=== PATIENT | female | born 1955 | race Caucasian/White ===

== ENCOUNTER 2024-07-14 15:14 | Inpatient (IN) | payer MEDICARE, OTHER ==
[2024-07-14 16:16] LABS: #Basophils 0.04 10x3/uL (0.0-0.2); #Eosinophils 0.15 10x3/uL (0.0-0.5); #Monocytes 0.81 10x3/uL (0.0-1.1); #Neutrophils 4.53 10x3/uL (1.5-8.4); %Basophils 0.5 % (0.0-2.0); %Eosinophils 1.8 % (0.0-6.0); %Lymphocytes 32.1 % (18.0-47.0); %Monocytes 9.9 % (0.0-10.0); %Neutrophils 55.5 % (40.0-75.0); Hematocrit 36.8 % (34.9-44.5); Hemoglobin 12.5 g/dL (12.0-15.5); Mean Corpuscular Hemoglobin 33.7 pg (27.0-33.0); Mean Corpuscular Volume 99.2 fL (81.6-98.3); Mean Platelet Volume 9.8 fL (7.4-10.4); Platelet Count 272 10x3/uL (150-450); RBC Distribution Width 12.6 % (11.5-14.5); Red Blood Cell (RBC) Count 3.71 10x6/uL (3.90-5.03); White Blood Cell (WBC) Count 8.2 10x3/uL (3.5-10.5)
[2024-07-14 16:28] LABS: ALT (SGPT) 18 U/L (8-55); AST (SGOT) 23 U/L (5-34); Albumin 4.2 g/dL (3.4-4.8); Alkaline Phosphatase 61 U/L (40-110); Anion Gap 15 mmol/L (10-20); BUN (Urea Nitrogen) 9 mg/dL (9.8-20.1); Bilirubin, Total 0.6 mg/dL (0.2-1.2); Calc. Creatinine Clearance 0 mL/min (70-130); Calcium 9.2 mg/dL (7.8-10.44); Carbon Dioxide 24 mmol/L (23-31); Chloride 104 mmol/L (98-107); Estimated GFR 81; Globulin 3.1 g/dL (2.4-3.5); Glucose 102 mg/dL (80-115); Protein, Total 7.3 g/dL (5.8-8.1); Sodium 139 mmol/L (136-145)
[2024-07-14 16:34] LABS: Troponin I Less than 0.010 ng/mL (< 0.028)
[2024-07-14] MEDS ORDERED: Aspirin Chewable 81 MG TAB ONE (17:34)
[2024-07-14] MEDS ORDERED: hydrALAZINE 20 MG/ML VIAL SLOW IVP PRN (17:54)
[2024-07-14] MEDS ORDERED: Senokot S 8.6-50 MG TAB PO PRN (17:54)
[2024-07-14] MEDS ORDERED: Lorazepam 2 MG/ML VIAL SLOW IVP SCH (18:15)
[2024-07-14 20:53] VITALS: BMI 23.0
[2024-07-14] MEDS: Famotidine/PF 20 mg/2ml Vial SLOW IVP SCH (21:33)
[2024-07-14] MEDS: Atorvastatin Calcium 40 MG TAB PO SCH (21:33)
[2024-07-15 04:09] LABS: #Basophils 0.04 10x3/uL (0.0-0.2); #Eosinophils 0.22 10x3/uL (0.0-0.5); #Monocytes 0.96 10x3/uL (0.0-1.1); #Neutrophils 3.28 10x3/uL (1.5-8.4); %Basophils 0.5 % (0.0-2.0); %Eosinophils 2.8 % (0.0-6.0); %Lymphocytes 42.6 % (18.0-47.0); %Monocytes 12.2 % (0.0-10.0); %Neutrophils 41.5 % (40.0-75.0); Hematocrit 34.7 % (34.9-44.5); Hemoglobin 11.5 g/dL (12.0-15.5); Mean Corpuscular HGB CONC 33.1 g/dL (32.0-36.0); Mean Corpuscular Hemoglobin 32.7 pg (27.0-33.0); Mean Corpuscular Volume 98.6 fL (81.6-98.3); Mean Platelet Volume 9.9 fL (7.4-10.4); Platelet Count 223 10x3/uL (150-450); RBC Distribution Width 12.6 % (11.5-14.5); Red Blood Cell (RBC) Count 3.52 10x6/uL (3.90-5.03); White Blood Cell (WBC) Count 7.9 10x3/uL (3.5-10.5)
[2024-07-15 04:34] LABS: Anion Gap 13 mmol/L (10-20); BUN (Urea Nitrogen) 10 mg/dL (9.8-20.1); Calc. Creatinine Clearance 64 mL/min (70-130); Calcium 8.7 mg/dL (7.8-10.44); Carbon Dioxide 27 mmol/L (23-31); Cardiac Risk 1.6 (Less than 4.5); Chloride 104 mmol/L (98-107); Cholesterol 114 mg/dl (< 200 Desired); Estimated GFR 81; Glucose 92 mg/dL (80-115); HDL Cholesterol 73 mg/dL (>60 Neg Risk); LDL Cholesterol, Calculated 32 mg/dL; Potassium 3.4 mmol/L (3.5-5.1); Sodium 141 mmol/L (136-145); Triglycerides 43 mg/dL (Less than 150)
[2024-07-15] MEDS: Enoxaparin 40 MG (0.4 mL) SYRINGE SC SCH (08:08)
[2024-07-15] MEDS: Potassium Chloride 20 MEQ TAB PO SCH (08:09)
[2024-07-15] MEDS: Ezetimibe 10 MG TAB PO SCH (08:09)
[2024-07-15] MEDS: Aspirin 81 mg Enteric Coated Tablet PO SCH (08:09)
[2024-07-15] MEDS: Icosapent Ethyl 1 GM CAPSULE PO SCH (08:34)
[2024-07-15] MEDS: Acetaminophen 325 MG TAB PO PRN (23:11)
[2024-07-16] MEDS: FLU (Fluad Triv) TS24-25 (65UP)/MF59C/PF 45 MCG/0.5 ML Syringe IM ONE (08:34)
[2024-07-16] MEDS: Lorazepam 2 MG/ML VIAL SLOW IVP SCH (11:45)
[2024-07-16] MEDS ORDERED: Iopamidol 370 76% 100 ML VIAL ONE (13:15)
[2024-07-16 14:33] LABS: Hemoglobin A1c 5.3 % (4.0-6.0)
[2024-07-16] MEDS ORDERED: Melatonin 3 MG TAB PO PRN (19:31)
[2024-07-16] MEDS: Carvedilol 12.5 MG TAB PO SCH (20:35)
[2024-07-17 08:25] VITALS: BP 139/88; TEMP 97.9
== END 2024-07-17 11:22 | disposition home or self-care (01) | DRG 74 ==
LOC: CSHERS 15:14 → CSHTELE 17:07 → OBSVTOIN 07-16 14:29
PROVIDERS: ADMIT Internal Medicine; ATTEND Internal Medicine
DX: M54.12 Radiculopathy, cervical region (principal); I42.8 Other cardiomyopathies; I25.10 Atherosclerotic heart disease of native coronary artery without angina pectoris; I10 Essential (primary) hypertension; E78.5 Hyperlipidemia, unspecified; M48.02 Spinal stenosis, cervical region; G47.00 Insomnia, unspecified; Z95.810 Presence of automatic (implantable) cardiac defibrillator; Z88.5 Allergy status to narcotic agent; Z98.891 History of uterine scar from previous surgery; Z79.899 Other long term (current) drug therapy
CPT/HCPCS: 36415; 36416; 70450; 70496; 70498; 70551; 71045; 72125; 72141; 80048; 80053; 80061; 83036; 84443; 84484; 85025; 93005; 93306; 93880; 96372; 96374; 96375; 96376; G0378; J1650; J2060; J3490; Q9967